=== PATIENT | female | born 1990 | race Caucasian/White ===

== ENCOUNTER 2019-08-04 20:03 | Emergency (ER) | payer MEDICAID ==
[~2019-08-04] VITALS: Ht 170.2 cm; Wt 90.7 kg
[2019-08-04] MEDS ORDERED: AZITHROMYCIN 250 MG TABLET ONE (21:58)
[2019-08-04] MEDS: AZITHROMYCIN 250 MG TABLET PO ONE (22:01)
--- NOTE | 2019-08-04 22:03 | NUR ---
Patient discharged to home in stable conditon. Written and verbal after care instructions given. Patient verbalizes understanding of instructions. AMBULATORY W/ STABLE GAIT ALL BELONGINGS W/ PT WILL DRIVE
[2019-08-04 22:05] VITALS: BP 118/89
== END 2019-08-04 22:05 | disposition home or self-care (01) ==
LOC: ER 20:09
DX: J06.9 Acute upper respiratory infection, unspecified (principal); J45.909 Unspecified asthma, uncomplicated
CPT/HCPCS: 36415; 86403; 87070; 87400; A4663; Q0144

== ENCOUNTER 2022-09-27 23:47 | Emergency (ER) | payer MEDICAID ==
[~2022-09-27] VITALS: Ht 162.6 cm; Wt 102.5 kg
[2022-09-28] MEDS ORDERED: OXYC-128 PO (00:22)
[2022-09-28] MEDS ORDERED: ONDA4TAB5 PO (00:22)
[2022-09-28] MEDS ORDERED: HYDROMORPHONE 1 MG/1 ML DISP.SYRIN IM ONE (00:30)
[2022-09-28] MEDS ORDERED: ONDANSETRON ODT 4 MG TAB.RAPDIS ONE (00:30)
[2022-09-28] MEDS ORDERED: ONDANSETRON ODT 4 MG TAB.RAPDIS SL ONE (00:30)
[2022-09-28] MEDS ORDERED: HYDROMORPHONE 1 MG/1 ML DISP.SYRIN ONE (00:33)
[2022-09-28 04:28] VITALS: BP 135/75
== END 2022-09-28 03:00 | disposition home or self-care (01) ==
LOC: ER 23:51
DX: R51.9 Headache, unspecified (principal); J45.909 Unspecified asthma, uncomplicated
CPT/HCPCS: 99283; 96372; J1170; A4663; Q0162

== ENCOUNTER 2022-10-31 21:55 | Emergency (ER) | payer MEDICAID ==
[~2022-10-31] VITALS: Ht 162.6 cm; Wt 90.7 kg
[~2022-10-31 21:55] MED LIST: ONDA4TAB5 PO; OXYC-128 PO
--- NOTE | 2022-10-31 22:26 | NUR ---
Patient placed in room 2B
[2022-11-01] MEDS ORDERED: ASPIRIN 81 MG TAB.CHEW PO ONE (00:15)
[2022-11-01] MEDS ORDERED: ASPIRIN 81 MG TAB.CHEW ONE (00:18)
[2022-11-01 00:26] LABS: HEMATOCRIT 33.8 % (31.2-41.9); MEAN CORPUSCULAR HEMOGLOBIN 27.3 uug (24.7-32.8); MEAN CORPUSCULAR VOLUME 81.7 fL (75.5-95.3); PLATELET COUNT (AUTO) 238 K/uL (179-408)
[2022-11-01 01:08] LABS: ALANINE AMINOTRANSFERASE 29 U/L (14-59); ALKALINE PHOSPHATASE 60 U/L (50-136); ASPARTATE AMINOTRANSFERASE 19 U/L (15-37); BILIRUBIN,DIRECT 0.2 mg/dL (0.0-0.2); BILIRUBIN,TOTAL 0.8 mg/dL (0.2-1.0); CARBON DIOXIDE 26 mmol/L (21-32); CHLORIDE 106 mmol/L (98-107); CREATININE 0.7 mg/dL (0.6-1.3); GLUCOSE 123 mg/dL (74-106); POTASSIUM 3.8 mmol/L (3.5-5.1); TOTAL PROTEIN, SERUM 7.3 g/dL (6.4-8.2); UREA NITROGEN, BLOOD 8 mg/dL (7-18)
[2022-11-01] MEDS ORDERED: HYDR-4209 PO (03:35)
--- NOTE | 2022-11-01 03:52 | NUR ---
Patient discharged to home in stable condition. Written and verbal after care instructions given. Patient verbalizes understanding of instructions. Stressed follow up or return to ER for worsening s/s.
[2022-11-01 03:55] VITALS: BP 110/75
== END 2022-11-01 03:52 | disposition home or self-care (01) ==
LOC: ER 21:55
DX: R07.89 Other chest pain (principal); J45.909 Unspecified asthma, uncomplicated; Z79.899 Other long term (current) drug therapy
CPT/HCPCS: 36415; 71045; 84484; 85025; 93005; A4663

== ENCOUNTER 2023-07-12 21:53 | Emergency (ER) | payer MEDICAID, OTHER ==
[~2023-07-12] VITALS: Ht 162.6 cm; Wt 92.1 kg
[~2023-07-12 21:53] MED LIST changes: +GUAI5SYR PO; +HYDR-4209 PO; +METH4TAB3 PO
[2023-07-12] MEDS ORDERED: KETOROLAC TROMETHAMINE 60 MG INJ IM ONE ×2 (22:15→22:22)
[2023-07-12] MEDS ORDERED: ONDANSETRON ODT 4 MG TAB.RAPDIS SL ONE (22:15)
[2023-07-12] MEDS ORDERED: ONDANSETRON ODT 4 MG TAB.RAPDIS ONE (22:22)
[2023-07-12 22:23] LABS: BASOPHILS # (AUTO) 0.1 K/UL (0.0-0.2); BASOPHILS % (AUTO) 1.2 % (0.0-2.0); EOSINOPHILS % (AUTO) 0.5 % (0.0-7.0); HEMATOCRIT 36.9 % (31.2-41.9); HEMOGLOBIN 12.2 g/dL (10.9-14.3); LYMPHOCYTES # (AUTO) 1.7 K/uL (0.8-4.8); LYMPHOCYTES % (AUTO) 20.3 % (20.5-51.5); MEAN CORPUSCULAR HEMOGLOBIN 26.7 uug (24.7-32.8); MEAN CORPUSCULAR HGB CONC 33 g/dL (32.3-35.6); MEAN CORPUSCULAR VOLUME 80.7 fL (75.5-95.3); MONOCYTES # (AUTO) 0.5 K/uL (0.1-1.30); MONOCYTES % (AUTO) 6.4 % (0.0-11.0); NEUTROPHILS # (AUTO) 5.9 K/uL (1.8-8.9); NEUTROPHILS % (AUTO) 71.6 % (38.5-71.5); PLATELET COUNT (AUTO) 275 K/uL (179-408); RED BLOOD CELL COUNT(AUTO) 4.58 MIL/uL (3.63-4.92); RED CELL DISTRIBUTION WIDTH 14.3 % (12.3-17.7); WHITE BLOOD COUNT (AUTO) 8.3 K/uL (3.8-11.8)
[2023-07-12 22:32] LABS: ALBUMIN 3.5 g/dL (3.4-5.0); BILIRUBIN,DIRECT 1.3 mg/dL (0.0-0.2); BILIRUBIN,TOTAL 2.8 mg/dL (0.2-1.0); CALCIUM 8.9 mg/dL (8.5-10.1); CREATININE 0.6 mg/dL (0.6-1.3); POTASSIUM 3.8 mmol/L (3.5-5.1); TOTAL PROTEIN, SERUM 7.9 g/dL (6.4-8.2)
[2023-07-12 22:40] LABS: DIFFERENTIAL COMMENT 1
[2023-07-13] MEDS ORDERED: ONDANSETRON 4 MG/2 ML VIAL ONE (00:43)
[2023-07-13] MEDS ORDERED: HYDROMORPHONE 1 MG/1 ML DISP.SYRIN ONE (00:43)
[2023-07-13] MEDS ORDERED: ONDANSETRON 4 MG/2 ML VIAL IV ONE (00:45)
[2023-07-13] MEDS ORDERED: HYDROMORPHONE 1 MG/1 ML DISP.SYRIN IV ONE (00:45)
[2023-07-13] MEDS ORDERED: REMEDY ESSENTIAL ZINC PASTE 113 GM TP PRN (02:00)
[2023-07-13] MEDS ORDERED: HYDROMORPHONE 1 MG/1 ML DISP.SYRIN IV PRN (02:00)
[2023-07-13] MEDS ORDERED: IV D5 1/2 NS 1000 ML 1,000 ML IV PRN (02:00)
[2023-07-13] MEDS ORDERED: ACETAMINOPHEN 325 MG TABLET PO PRN (02:00)
[2023-07-13] MEDS ORDERED: ONDANSETRON 4 MG/2 ML VIAL IV PRN (02:00)
[2023-07-13] MEDS ORDERED: PANTOPRAZOLE SODIUM 40 MG VIAL IV SCH (09:00)
[2023-07-13 09:10] VITALS: O2SAT 96
== END 2023-07-13 09:20 | disposition short-term general hospital (02) ==
LOC: ER 21:53
DX: K80.51 Calculus of bile duct without cholangitis or cholecystitis with obstruction (principal); R10.2 Pelvic and perineal pain; Z79.899 Other long term (current) drug therapy
CPT/HCPCS: 99285; 74176; 76705; 80076; 80048; 83690; 85025; 84702; 36415; 96372; 96374; 96375; J1885; J2405; J1170; A4606; A4663; Q0162

== ENCOUNTER → 2023-07-23 | Emergency (ER) | payer OTHER ==
[~2023-07-23] VITALS: Ht 147.3 cm; Wt 92.1 kg
[~2023-07-23] MED LIST changes: +HYDROMORPHONE 1 MG/1 ML DISP.SYRIN IV ONE; +HYDROMORPHONE 1 MG/1 ML DISP.SYRIN ONE; +IV NORMAL SALINE 1000 ML BAG IV ONE; +KETOROLAC TROMETHAMINE 15 MG INJ IVP ONE; +KETOROLAC TROMETHAMINE 15 MG INJ ONE; +ONDANSETRON 4 MG/2 ML VIAL IV ONE; +ONDANSETRON 4 MG/2 ML VIAL ONE
[2023-07-23 03:57] LABS: BASOPHILS # (AUTO) 0.1 K/UL (0.0-0.2); BASOPHILS % (AUTO) 0.5 % (0.0-2.0); EOSINOPHILS # (AUTO) 0.1 K/uL (0.0-0.7); EOSINOPHILS % (AUTO) 1.1 % (0.0-7.0); HEMATOCRIT 36.4 % (31.2-41.9); HEMOGLOBIN 12.1 g/dL (10.9-14.3); LYMPHOCYTES # (AUTO) 3.4 K/uL (0.8-4.8); LYMPHOCYTES % (AUTO) 26.6 % (20.5-51.5); MEAN CORPUSCULAR HEMOGLOBIN 26.8 uug (24.7-32.8); MEAN CORPUSCULAR HGB CONC 33 g/dL (32.3-35.6); MONOCYTES % (AUTO) 7.5 % (0.0-11.0); NEUTROPHILS # (AUTO) 8.2 K/uL (1.8-8.9); NEUTROPHILS % (AUTO) 64.3 % (38.5-71.5); PLATELET COUNT (AUTO) 308 K/uL (179-408); WHITE BLOOD COUNT (AUTO) 12.8 K/uL (3.8-11.8)
[2023-07-23 04:05] LABS: DIFFERENTIAL COMMENT 1
[2023-07-23 04:22] LABS: PREGNANCY TEST SERUM QUAN < 1 miul/L (0-6)
[2023-07-23 04:24] LABS: ALANINE AMINOTRANSFERASE 46 U/L (14-59); ALBUMIN 3.6 g/dL (3.4-5.0); ALKALINE PHOSPHATASE 83 U/L (50-136); ASPARTATE AMINOTRANSFERASE 40 U/L (15-37); BILIRUBIN,DIRECT 0.4 mg/dL (0.0-0.2); BILIRUBIN,TOTAL 1.1 mg/dL (0.2-1.0); CALCIUM 8.7 mg/dL (8.5-10.1); CARBON DIOXIDE 27 mmol/L (21-32); CHLORIDE 105 mmol/L (98-107); CREATININE 0.7 mg/dL (0.6-1.3); GLUCOSE 117 mg/dL (74-106); LIPASE 41 U/L (16-77); POTASSIUM 3.6 mmol/L (3.5-5.1); SODIUM SERUM 140 mmol/L (136-145); TOTAL PROTEIN, SERUM 8.2 g/dL (6.4-8.2); UREA NITROGEN, BLOOD 14 mg/dL (7-18)
[2023-07-23 17:19] VITALS: BP 113/72; O2SAT 97
== END | disposition left against medical advice (07) ==
LOC: ER 03:36
DX: R10.13 Epigastric pain (principal); R10.11 Right upper quadrant pain; R10.2 Pelvic and perineal pain; Z20.822 Contact with and (suspected) exposure to COVID-19; Z98.890 Other specified postprocedural states; Z79.899 Other long term (current) drug therapy
CPT/HCPCS: 99285; 96374; 76705; 96375; 96361; 87426; 80076; 80048; 83690; 85025; 84702; 36415; J1885; J2405; J1170; J7040; A4606; A4663

== ENCOUNTER 2023-10-14 17:48 | Emergency (ER) | payer MEDICAID ==
[~2023-10-14] VITALS: Ht 162.6 cm; Wt 93.4 kg
[~2023-10-14 17:48] MED LIST changes: -GUAI5SYR PO; -HYDROMORPHONE 1 MG/1 ML DISP.SYRIN IV ONE; -HYDROMORPHONE 1 MG/1 ML DISP.SYRIN ONE; -IV NORMAL SALINE 1000 ML BAG IV ONE; -KETOROLAC TROMETHAMINE 15 MG INJ IVP ONE; -KETOROLAC TROMETHAMINE 15 MG INJ ONE; -METH4TAB3 PO; -ONDA4TAB5 PO; -ONDANSETRON 4 MG/2 ML VIAL IV ONE; -ONDANSETRON 4 MG/2 ML VIAL ONE
[2023-10-14 18:27] LABS: *BILIRUBIN,URIN NEGATIVE (NEGATIVE); *BLOOD, URINE 3+ (NEGATIVE); *CLARITY,URINE SLIGHTLY CLOUDY (CLEAR); *COLOR,URINE PINK (YELLOW); *KETONES,URINE NEGATIVE (NEGATIVE); *PROTEIN,URINE 2+ (NEGATIVE); LEUKOCYTE ESTERASE ,URINE NEGATIVE (NEGATIVE); NITRITE, URINE NEGATIVE (NEGATIVE); PH,URINE 8.5 (5.0-8.0); UGLUCOSE NEGATIVE (NEGATIVE)
[2023-10-14 18:28] LABS: BASOPHILS # (AUTO) 0.1 K/UL (0.0-0.2); BASOPHILS % (AUTO) 1.2 % (0.0-2.0); EOSINOPHILS # (AUTO) 0.1 K/uL (0.0-0.7); EOSINOPHILS % (AUTO) 1.1 % (0.0-7.0); HEMATOCRIT 34.6 % (31.2-41.9); HEMOGLOBIN 11.6 g/dL (10.9-14.3); LYMPHOCYTES # (AUTO) 1.9 K/uL (0.8-4.8); LYMPHOCYTES % (AUTO) 27.7 % (20.5-51.5); MEAN CORPUSCULAR HEMOGLOBIN 26.5 uug (24.7-32.8); MEAN CORPUSCULAR HGB CONC 34 g/dL (32.3-35.6); MEAN CORPUSCULAR VOLUME 78.8 fL (75.5-95.3); MONOCYTES # (AUTO) 0.4 K/uL (0.1-1.30); MONOCYTES % (AUTO) 5.9 % (0.0-11.0); NEUTROPHILS # (AUTO) 4.5 K/uL (1.8-8.9); NEUTROPHILS % (AUTO) 64.1 % (38.5-71.5); PLATELET COUNT (AUTO) 251 K/uL (179-408); RED BLOOD CELL COUNT(AUTO) 4.39 MIL/uL (3.63-4.92); RED CELL DISTRIBUTION WIDTH 13.6 % (12.3-17.7)
[2023-10-14 18:37] LABS: DIFFERENTIAL COMMENT 1
[2023-10-14 18:40] LABS: CALCIUM 8.8 mg/dL (8.5-10.1); CREATININE 0.6 mg/dL (0.6-1.3)
[2023-10-14 18:46] LABS: ALBUMIN 3.4 g/dL (3.4-5.0); BILIRUBIN,DIRECT 0.1 mg/dL (0.0-0.2); BILIRUBIN,TOTAL 0.7 mg/dL (0.2-1.0); TOTAL PROTEIN, SERUM 7.7 g/dL (6.4-8.2); WBC,URINE 0-3 /HPF (0-3)
[2023-10-14 18:47] LABS: *URINE HCG, QUAL NEGATIVE (NEGATIVE)
[2023-10-14] MEDS ORDERED: KETOROLAC TROMETHAMINE 15 MG INJ ONE (22:55)
[2023-10-14] MEDS ORDERED: METOCLOPRAMIDE HCL 10 MG/2 ML VIAL ONE (22:55)
[2023-10-14] MEDS: METOCLOPRAMIDE HCL 10 MG/2 ML VIAL IV ONE (22:59)
[2023-10-14] MEDS: KETOROLAC TROMETHAMINE 15 MG INJ IVP ONE (23:00)
[2023-10-14 23:04] LABS: CALCIUM 8.8 mg/dL (8.5-10.1); CARBON DIOXIDE 26 mmol/L (21-32); CHLORIDE 106 mmol/L (98-107); CREATININE 0.6 mg/dL (0.6-1.3); GLUCOSE 96 mg/dL (74-106); POTASSIUM 3.7 mmol/L (3.5-5.1); SODIUM SERUM 141 mmol/L (136-145); UREA NITROGEN, BLOOD 7 mg/dL (7-18)
[2023-10-14 23:15] LABS: PREGNANCY TEST SERUM QUAN 1 miul/L (0-6)
[2023-10-14 23:18] LABS: ALANINE AMINOTRANSFERASE 35 U/L (14-59); ALBUMIN 3.6 g/dL (3.4-5.0); ALKALINE PHOSPHATASE 71 U/L (50-136); ASPARTATE AMINOTRANSFERASE 29 U/L (15-37); BILIRUBIN,DIRECT 0.1 mg/dL (0.0-0.2); BILIRUBIN,TOTAL 0.7 mg/dL (0.2-1.0); LIPASE 27 U/L (16-77); TOTAL PROTEIN, SERUM 8.2 g/dL (6.4-8.2)
[2023-10-15] MEDS ORDERED: IBUP-1957 PO (03:22)
[2023-10-15 03:37] VITALS: BP 135/87; TEMP 98.5; O2SAT 99
== END 2023-10-15 03:37 | disposition home or self-care (01) ==
LOC: ER 17:50
DX: K80.70 Calculus of gallbladder and bile duct without cholecystitis without obstruction (principal); Z98.890 Other specified postprocedural states; Z79.899 Other long term (current) drug therapy; R10.2 Pelvic and perineal pain
CPT/HCPCS: 99285; 96374; 76705; 71045; 96375; 80048 ×2; 81001; 84703; 83690 ×2; 85025; 85730; 87040 ×2; 84484; 84702; 36415; 93005; 83605; 80076 ×2; J1885; J2765; A4606; A4663

== ENCOUNTER 2024-03-02 02:39 | Emergency (ER) | payer MEDICAID ==
[~2024-03-02] VITALS: Ht 162.6 cm; Wt 97.5 kg
[~2024-03-02 02:39] MED LIST changes: +IBUP-1957 PO
--- NOTE | 2024-03-02 02:58 | NUR ---
ERMD at bedside. MSE in progress.
[2024-03-02] MEDS ORDERED: ONDANSETRON 4 MG/2 ML VIAL ONE (03:05)
[2024-03-02] MEDS ORDERED: KETOROLAC TROMETHAMINE 15 MG INJ ONE (03:05)
[2024-03-02] MEDS ORDERED: HYDROMORPHONE 1 MG/1 ML DISP.SYRIN ONE (03:06)
[2024-03-02 03:24] LABS: BASOPHILS # (AUTO) 0.1 K/UL (0.0-0.2); BASOPHILS % (AUTO) 0.7 % (0.0-2.0); EOSINOPHILS # (AUTO) 0.1 K/uL (0.0-0.7); EOSINOPHILS % (AUTO) 0.9 % (0.0-7.0); HEMATOCRIT 36.5 % (31.2-41.9); HEMOGLOBIN 12.4 g/dL (10.9-14.3); LYMPHOCYTES # (AUTO) 2.9 K/uL (0.8-4.8); MEAN CORPUSCULAR HEMOGLOBIN 27.5 uug (24.7-32.8); MEAN CORPUSCULAR HGB CONC 34 g/dL (32.3-35.6); MEAN CORPUSCULAR VOLUME 81.2 fL (75.5-95.3); MONOCYTES # (AUTO) 0.6 K/uL (0.1-1.30); MONOCYTES % (AUTO) 6.1 % (0.0-11.0); NEUTROPHILS # (AUTO) 5.8 K/uL (1.8-8.9); NEUTROPHILS % (AUTO) 61.3 % (38.5-71.5); PLATELET COUNT (AUTO) 244 K/uL (179-408); RED BLOOD CELL COUNT(AUTO) 4.49 MIL/uL (3.63-4.92); RED CELL DISTRIBUTION WIDTH 14.8 % (12.3-17.7); WHITE BLOOD COUNT (AUTO) 9.4 K/uL (3.8-11.8)
[2024-03-02 03:27] LABS: DIFFERENTIAL COMMENT 1
[2024-03-02] MEDS: HYDROMORPHONE 1 MG/1 ML DISP.SYRIN IV ONE (03:29)
[2024-03-02] MEDS: ONDANSETRON 4 MG/2 ML VIAL IV ONE (03:29)
[2024-03-02] MEDS: KETOROLAC TROMETHAMINE 15 MG INJ IVP ONE (03:30)
--- NOTE | 2024-03-02 03:31 | NUR ---
#22G established on left AC. Blood sample was obtained and handed to the rags laborer
--- NOTE | 2024-03-02 03:32 | NUR ---
Administered medication as prescribed. Assisted patient into comfortable position. safety and comfort measures in place. No S/S of distress noted.
[2024-03-02 03:38] LABS: ALBUMIN 3.8 g/dL (3.4-5.0); BILIRUBIN,DIRECT 0.1 mg/dL (0.0-0.2); BILIRUBIN,TOTAL 0.7 mg/dL (0.2-1.0); CALCIUM 8.8 mg/dL (8.5-10.1); CREATININE 0.7 mg/dL (0.6-1.3); POTASSIUM 3.6 mmol/L (3.5-5.1); TOTAL PROTEIN, SERUM 8.1 g/dL (6.4-8.2)
--- NOTE | 2024-03-02 04:35 | NUR ---
Ultrasound at bedside.
[2024-03-02] MEDS ORDERED: IBUP-1490 PO (04:48)
[2024-03-02] MEDS ORDERED: HYDR-3980 PO (04:48)
[2024-03-02] MEDS ORDERED: ONDA4TAB11 PO (04:48)
--- NOTE | 2024-03-02 06:02 | NUR ---
Patient is resting comfortably in bed with eyes closed. No S/S of distress noted.
[2024-03-02 07:23] VITALS: BP 139/7; O2SAT 97
== END 2024-03-02 07:24 | disposition home or self-care (01) ==
LOC: ER 02:48
DX: K80.20 Calculus of gallbladder without cholecystitis without obstruction (principal); R10.2 Pelvic and perineal pain; Z79.1 Long term (current) use of non-steroidal anti-inflammatories (NSAID); Z79.891 Long term (current) use of opiate analgesic; Z98.890 Other specified postprocedural states
CPT/HCPCS: 99285; 93970; 96374; 76705; 96375; 80076; 80048; 83690; 85025; 84702; 36415; J1885; J2405; J1170; A4606; A4663

== ENCOUNTER 2024-03-03 23:50 | Emergency (ER) | payer MEDICAID ==
[~2024-03-03] VITALS: Ht 152.4 cm; Wt 117.9 kg
[~2024-03-03 23:50] MED LIST changes: +HYDR-3980 PO; +IBUP-1490 PO; +ONDA4TAB11 PO
--- NOTE | 2024-03-04 00:11 | NUR ---
Dr Lovell into eval patient.
[2024-03-04] MEDS ORDERED: ONDANSETRON ODT 4 MG TAB.RAPDIS ONE (00:17)
[2024-03-04] MEDS ORDERED: HYDROCODONE/APAP 10-325 MG TABLET ONE (00:17)
[2024-03-04] MEDS: HYDROCODONE/APAP 10-325 MG TABLET PO ONE (00:19)
[2024-03-04] MEDS: ONDANSETRON ODT 4 MG TAB.RAPDIS SL ONE (00:19)
--- NOTE | 2024-03-04 00:20 | NUR ---
Administered medication as prescribed. Assisted patient into comfortable position. safety and comfort measures in place. Emotional support provided. No S/S of distress noted,
--- NOTE | 2024-03-04 01:02 | NUR ---
Patient sleeping on gurmission. Dr Lovell into re eval patient.
[2024-03-04] MEDS ORDERED: OXYCODONE/APAP 5-325 MG TABLET ONE (02:11)
[2024-03-04] MEDS: OXYCODONE/APAP 5-325 MG TABLET PO ONE (02:12)
--- NOTE | 2024-03-04 02:12 | NUR ---
Administered medication as prescribed. Assisted patient into comfortable position. safety and comfort measures in place. Emotional support provided. No S/S of distress noted.
--- NOTE | 2024-03-04 02:43 | NUR ---
Patient is resting comfortably in bed with eyes closed. No S/S of distress noted.
--- NOTE | 2024-03-04 04:05 | NUR ---
safety and comfort measures in place. No S/S of distress noted.
--- NOTE | 2024-03-04 07:35 | NUR ---
PT SAFETY DISCHARGE BY MD, INSTRUCTIONS WAS GIVEN, PT VERBALIZES UNDERSTANDING. PT INSTRUCTED TO FOLLOW UP WITH PCP AND NEURO SPECIALIST FOR FURTHER CONTROL, AND RETURN IF SYMPTOMS/SIGNS APPEARS OR GET WORSE. PT STABLE, AAOX4, NO C/O PAIN AT THIS TIME, AMBULATORY WITH STEADY GAIT, ID BAND REMOVED. PT LEAVES ER WITH ALL BELONGINGS IN HAND.
[2024-03-04 07:38] VITALS: BP 120/69; O2SAT 98
== END 2024-03-04 07:35 | disposition home or self-care (01) ==
LOC: ER 03-04 00:03
DX: R51.9 Headache, unspecified (principal); Z79.1 Long term (current) use of non-steroidal anti-inflammatories (NSAID); Z98.890 Other specified postprocedural states; Z79.891 Long term (current) use of opiate analgesic; Z79.899 Other long term (current) drug therapy
CPT/HCPCS: A4606; A4663; Q0162

== ENCOUNTER 2024-03-19 21:14 | Emergency (ER) | payer MEDICAID ==
[~2024-03-19] VITALS: Ht 162.6 cm; Wt 96.6 kg
[2024-03-19] MEDS ORDERED: PSEU120T83 PO (21:41)
[2024-03-19] MEDS ORDERED: PSEUDOEPHEDRINE HCL 30 MG TABLET ONE (21:50)
[2024-03-19] MEDS: PSEUDOEPHEDRINE HCL 30 MG TABLET PO ONE (21:53)
[2024-03-19] MEDS ORDERED: AMOX500C2 PO (22:04)
[2024-03-19] MEDS ORDERED: AMOXicillin 250 MG CAPSULE ONE (22:17)
[2024-03-19] MEDS: AMOXicillin 250 MG CAPSULE PO ONE (22:18)
[2024-03-19 22:26] VITALS: BP 120/70; TEMP 98.5; O2SAT 97
== END 2024-03-19 22:23 | disposition home or self-care (01) ==
LOC: ER 21:16
DX: J02.8 Acute pharyngitis due to other specified organisms (principal); H69.83 Other specified disorders of Eustachian tube, bilateral; Z98.890 Other specified postprocedural states; Z79.1 Long term (current) use of non-steroidal anti-inflammatories (NSAID); Z79.891 Long term (current) use of opiate analgesic; Z20.822 Contact with and (suspected) exposure to COVID-19; Z79.899 Other long term (current) drug therapy
CPT/HCPCS: 86403; A4606; A4663

== ENCOUNTER 2024-05-25 01:08 | Emergency (ER) | payer MEDICAID ==
[~2024-05-25] VITALS: Ht 162.6 cm; Wt 98.9 kg
[~2024-05-25 01:08] MED LIST changes: +AMOX500C2 PO; +PSEU120T83 PO
[2024-05-25] MEDS ORDERED: DOXY100T2 PO (01:50)
[2024-05-25] MEDS ORDERED: ACET15SO5 LEFT EAR (01:50)
[2024-05-25] MEDS ORDERED: GUAIFENESIN/CODEINE 5 ML LIQUID UDC ONE (01:56)
[2024-05-25] MEDS ORDERED: DOXYCYCLINE HYCLATE 100 MG TABLET ONE (01:56)
[2024-05-25] MEDS ORDERED: ACETAMINOPHEN 500 MG TABLET ONE (01:56)
[2024-05-25] MEDS: DOXYCYCLINE HYCLATE 100 MG TABLET PO ONE (01:58)
[2024-05-25] MEDS: GUAIFENESIN/CODEINE 5 ML LIQUID UDC PO ONE (01:58)
[2024-05-25] MEDS: ACETAMINOPHEN 500 MG TABLET PO ONE (01:58)
[2024-05-25 02:05] VITALS: BP 120/76; O2SAT 99
== END 2024-05-25 02:06 | disposition home or self-care (01) ==
LOC: ER 01:16
DX: J06.9 Acute upper respiratory infection, unspecified (principal); H61.22 Impacted cerumen, left ear; Z79.899 Other long term (current) drug therapy
CPT/HCPCS: A4606; A4663; A9150

== ENCOUNTER → 2024-07-01 | Emergency (ER) | payer MEDICAID ==
[~2024-07-01] VITALS: Ht 162.6 cm; Wt 98.0 kg
[~2024-07-01] MED LIST changes: +ACET15SO5 LEFT EAR; +ACET325C7 PO; +D-ME473S47 PO; +DOXY100T2 PO; +IBUPROFEN 800 MG TABLET ONE; +METH4TAB3 PO; +ONDANSETRON ODT 4 MG TAB.RAPDIS ONE; +P-EP-92 PO
[2024-07-01] MEDS: IBUPROFEN 800 MG TABLET PO ONE (23:14)
[2024-07-01] MEDS: ONDANSETRON ODT 4 MG TAB.RAPDIS SL ONE (23:15)
[2024-07-02 00:33] VITALS: BP 127/80; TEMP 98.3; O2SAT 97
== END | disposition home or self-care (01) ==
LOC: ER 22:28
DX: J06.9 Acute upper respiratory infection, unspecified (principal); Z79.899 Other long term (current) drug therapy; Z20.822 Contact with and (suspected) exposure to COVID-19
CPT/HCPCS: 71045; A4606; A4663; Q0162

== ENCOUNTER 2024-07-04 00:16 | Emergency (ER) | payer MEDICAID ==
[~2024-07-04] VITALS: Ht 162.6 cm; Wt 98.4 kg
[~2024-07-04 00:16] MED LIST changes: -IBUPROFEN 800 MG TABLET ONE; -ONDANSETRON ODT 4 MG TAB.RAPDIS ONE
[2024-07-04] MEDS ORDERED: AMOXicillin 250 MG CAPSULE ONE (01:05)
[2024-07-04] MEDS: AMOXicillin 250 MG CAPSULE PO ONE (01:10)
[2024-07-04 01:44] VITALS: BP 115/72; TEMP 98; O2SAT 100
== END 2024-07-04 01:44 | disposition home or self-care (01) ==
LOC: ER 00:19
DX: J02.9 Acute pharyngitis, unspecified (principal); Z79.899 Other long term (current) drug therapy
CPT/HCPCS: A4663

== ENCOUNTER 2024-08-17 23:10 | Emergency (ER) | payer MEDICAID ==
[~2024-08-17] VITALS: Ht 167.6 cm; Wt 99.8 kg
[2024-08-17] MEDS ORDERED: METOCLOPRAMIDE HCL 10 MG/2 ML VIAL ONE (23:56)
[2024-08-17] MEDS ORDERED: MORPHINE SULFATE 4 MG/1 ML DISP.SYRIN ONE (23:56)
[2024-08-18] LABS: BASOPHILS % (AUTO) 0.3 % (0.0-2.0); EOSINOPHILS % (AUTO) 0.1 % (0.0-7.0); HEMATOCRIT 37.2 % (31.2-41.9); HEMOGLOBIN 12.9 g/dL (10.9-14.3); MEAN CORPUSCULAR HEMOGLOBIN 28.8 uug (24.7-32.8); MEAN CORPUSCULAR HGB CONC 35 g/dL (32.3-35.6); MEAN CORPUSCULAR VOLUME 83.2 fL (75.5-95.3); MONOCYTES # (AUTO) 0.6 K/uL (0.1-1.30); MONOCYTES % (AUTO) 4.8 % (0.0-11.0); NEUTROPHILS # (AUTO) 9.9 K/uL (1.8-8.9); NEUTROPHILS % (AUTO) 85.8 % (38.5-71.5); PLATELET COUNT (AUTO) 253 K/uL (179-408); RED BLOOD CELL COUNT(AUTO) 4.47 MIL/uL (3.63-4.92); RED CELL DISTRIBUTION WIDTH 13.8 % (12.3-17.7); WHITE BLOOD COUNT (AUTO) 11.5 K/uL (3.8-11.8)
[2024-08-18] MEDS: METOCLOPRAMIDE HCL 10 MG/2 ML VIAL IV ONE (00:01)
[2024-08-18] MEDS: IV NORMAL SALINE 1000 ML BAG IV ONE (00:01)
[2024-08-18] MEDS: MORPHINE SULFATE 4 MG/1 ML DISP.SYRIN IV ONE (00:01)
[2024-08-18 00:03] LABS: DIFFERENTIAL COMMENT 1
[2024-08-18 00:13] LABS: CARBON DIOXIDE 29 mmol/L (21-32); CHLORIDE 103 mmol/L (98-107); CREATININE 0.8 mg/dL (0.6-1.3); GLUCOSE 174 mg/dL (74-106); POTASSIUM 3.6 mmol/L (3.5-5.1); SODIUM SERUM 139 mmol/L (136-145); UREA NITROGEN, BLOOD 11 mg/dL (7-18)
[2024-08-18 00:23] LABS: ALANINE AMINOTRANSFERASE 123 U/L (14-59); ALBUMIN 3.9 g/dL (3.4-5.0); ALKALINE PHOSPHATASE 97 U/L (50-136); ASPARTATE AMINOTRANSFERASE 197 U/L (15-37); BILIRUBIN,DIRECT 1.1 mg/dL (0.0-0.2); BILIRUBIN,TOTAL 2.1 mg/dL (0.2-1.0); LIPASE 31 U/L (16-77); TOTAL PROTEIN, SERUM 8.3 g/dL (6.4-8.2)
[2024-08-18 00:32] LABS: PREGNANCY TEST SERUM QUAN < 1 miul/L (0-6)
[2024-08-18] MEDS: IV NS 1000 ML 1,000 ML IV ONE (00:59)
[2024-08-18] MEDS ORDERED: IOHEXOL 300MG/ML 100 ML INFUS..BTL ONE (01:34)
[2024-08-18] MEDS ORDERED: IV NORMAL SALINE 250 ML IV ONE (01:34)
[2024-08-18] MEDS ORDERED: SWABABLE VALVE TRANSFER SET EA MC ONE (01:34)
[2024-08-18] MEDS ORDERED: PIPERACILLIN/TAZOBACTAM/D5W 50 ML IV ONE (02:58)
[2024-08-18] MEDS: PIPERACILLIN SODIUM/TAZOBACTAM 3.375 G in IV DEXTROSE 5% 50 ML IV ONE (03:06)
[2024-08-18 03:09] VITALS: O2SAT 95
[2024-08-18 06:52] LABS: BASOPHILS # (AUTO) 0.1 K/UL (0.0-0.2); BASOPHILS % (AUTO) 0.7 % (0.0-2.0); EOSINOPHILS % (AUTO) 0.2 % (0.0-7.0); HEMATOCRIT 32.4 % (31.2-41.9); HEMOGLOBIN 11.2 g/dL (10.9-14.3); LYMPHOCYTES # (AUTO) 1.7 K/uL (0.8-4.8); LYMPHOCYTES % (AUTO) 22.2 % (20.5-51.5); MEAN CORPUSCULAR HEMOGLOBIN 28.9 uug (24.7-32.8); MEAN CORPUSCULAR HGB CONC 35 g/dL (32.3-35.6); MEAN CORPUSCULAR VOLUME 83.6 fL (75.5-95.3); MONOCYTES # (AUTO) 0.5 K/uL (0.1-1.30); MONOCYTES % (AUTO) 6.5 % (0.0-11.0); NEUTROPHILS # (AUTO) 5.5 K/uL (1.8-8.9); NEUTROPHILS % (AUTO) 70.4 % (38.5-71.5); PLATELET COUNT (AUTO) 226 K/uL (179-408); RED BLOOD CELL COUNT(AUTO) 3.87 MIL/uL (3.63-4.92); RED CELL DISTRIBUTION WIDTH 13.8 % (12.3-17.7); WHITE BLOOD COUNT (AUTO) 7.8 K/uL (3.8-11.8)
[2024-08-18 06:56] LABS: DIFFERENTIAL COMMENT 1
[2024-08-18 07:04] LABS: ALBUMIN 3.1 g/dL (3.4-5.0); BILIRUBIN,TOTAL 1.3 mg/dL (0.2-1.0); CALCIUM 8.3 mg/dL (8.5-10.1); CREATININE 0.7 mg/dL (0.6-1.3); POTASSIUM 3.8 mmol/L (3.5-5.1)
== END 2024-08-18 10:30 | disposition short-term general hospital (02) ==
LOC: ER 23:15
DX: K80.70 Calculus of gallbladder and bile duct without cholecystitis without obstruction (principal); R10.2 Pelvic and perineal pain
CPT/HCPCS: 99285; 80076; 80048; 83690; 85025 ×2; 87040; 84702; 83605; 74177; 96365; 96361; 76705; 96375; 96366; 80053; 36415; J2765; J2270; Q9967; J2543; J7040 ×2; A4606; A4663

== ENCOUNTER 2024-08-23 22:49 | Emergency (ER) | payer MEDICAID ==
[~2024-08-23] VITALS: Ht 167.6 cm; Wt 99.8 kg
[2024-08-23 23:49] LABS: BASOPHILS # (AUTO) 0.1 K/UL (0.0-0.2); BASOPHILS % (AUTO) 0.7 % (0.0-2.0); EOSINOPHILS # (AUTO) 0.1 K/uL (0.0-0.7); EOSINOPHILS % (AUTO) 1.3 % (0.0-7.0); HEMATOCRIT 34.7 % (31.2-41.9); HEMOGLOBIN 11.9 g/dL (10.9-14.3); LYMPHOCYTES # (AUTO) 3.1 K/uL (0.8-4.8); LYMPHOCYTES % (AUTO) 29.3 % (20.5-51.5); MEAN CORPUSCULAR HEMOGLOBIN 28.5 uug (24.7-32.8); MEAN CORPUSCULAR HGB CONC 34 g/dL (32.3-35.6); MEAN CORPUSCULAR VOLUME 83.3 fL (75.5-95.3); MONOCYTES # (AUTO) 0.8 K/uL (0.1-1.30); MONOCYTES % (AUTO) 7.7 % (0.0-11.0); NEUTROPHILS # (AUTO) 6.3 K/uL (1.8-8.9); PLATELET COUNT (AUTO) 245 K/uL (179-408); RED BLOOD CELL COUNT(AUTO) 4.17 MIL/uL (3.63-4.92); RED CELL DISTRIBUTION WIDTH 13.6 % (12.3-17.7); WHITE BLOOD COUNT (AUTO) 10.4 K/uL (3.8-11.8)
[2024-08-23] MEDS ORDERED: MORPHINE SULFATE 4 MG/1 ML DISP.SYRIN ONE (23:57)
[2024-08-23] MEDS ORDERED: ONDANSETRON 4 MG/2 ML VIAL ONE (23:57)
[2024-08-23 23:59] LABS: CALCIUM 8.7 mg/dL (8.5-10.1); CREATININE 0.7 mg/dL (0.6-1.3)
[2024-08-24 00:05] LABS: ALBUMIN 3.3 g/dL (3.4-5.0); BILIRUBIN,DIRECT 0.2 mg/dL (0.0-0.2); BILIRUBIN,TOTAL 0.8 mg/dL (0.2-1.0); TOTAL PROTEIN, SERUM 7.2 g/dL (6.4-8.2)
[2024-08-24] MEDS: ONDANSETRON 4 MG/2 ML VIAL IV ONE (00:19)
[2024-08-24] MEDS: MORPHINE SULFATE 2 MG/1 ML DISP.SYRIN IV ONE (00:19)
[2024-08-24] MEDS: IV NORMAL SALINE 1000 ML BAG IV ONE (00:19)
[2024-08-24 01:44] LABS: *URINE HCG, QUAL NEGATIVE (NEGATIVE)
[2024-08-24 01:45] LABS: *BILIRUBIN,URIN NEGATIVE (NEGATIVE); *BLOOD, URINE TRACE (NEGATIVE); *CLARITY,URINE CLEAR (CLEAR); *COLOR,URINE YELLOW (YELLOW); *KETONES,URINE NEGATIVE (NEGATIVE); *PROTEIN,URINE NEGATIVE (NEGATIVE); *UROBILINOGEN,URINE 0.2 E.U./dl (NORMAL); BACTERIA,URINE NONE SEEN /HPF (NONE SEEN); LEUKOCYTE ESTERASE ,URINE NEGATIVE (NEGATIVE); NITRITE, URINE NEGATIVE (NEGATIVE); SQUAMOUS EPITHELIAL CELL,UR NONE SEEN /HPF (NONE SEEN); UGLUCOSE NEGATIVE (NEGATIVE); WBC,URINE 0-3 /HPF (0-3)
[2024-08-24] MEDS ORDERED: HYDR-4209 PO (02:40)
[2024-08-24] MEDS ORDERED: ONDA4TAB11 PO (02:40)
[2024-08-24 02:58] VITALS: BP 116/74; TEMP 98.2; O2SAT 99
== END 2024-08-24 03:00 | disposition home or self-care (01) ==
LOC: ER 22:53
DX: K80.50 Calculus of bile duct without cholangitis or cholecystitis without obstruction (principal)
CPT/HCPCS: 99285; 76705; 80076; 80048; 83690; 85025; 85730; 36415; 96374; 96375; 81001; 84703; J2405; J2270; J7040; A4606; A4663

== ENCOUNTER 2024-10-29 23:20 | Emergency (ER) | payer MEDICAID ==
[~2024-10-29] VITALS: Ht 165.1 cm; Wt 72.6 kg
[2024-10-30] MEDS ORDERED: ONDANSETRON HCL 4 MG TABLET ONE (00:14)
[2024-10-30] MEDS ORDERED: HYDROMORPHONE 1 MG/1 ML DISP.SYRIN ONE ×2 (00:14→02:46)
[2024-10-30] MEDS: ONDANSETRON HCL 4 MG TABLET PO ONE (00:18)
[2024-10-30] MEDS: HYDROMORPHONE 1 MG/1 ML DISP.SYRIN IM ONE (00:21)
[2024-10-30 00:28] LABS: BASOPHILS # (AUTO) 0.1 K/UL (0.0-0.2); BASOPHILS % (AUTO) 0.3 % (0.0-2.0); HEMATOCRIT 37.8 % (31.2-41.9); HEMOGLOBIN 12.8 g/dL (10.9-14.3); LYMPHOCYTES # (AUTO) 0.7 K/uL (0.8-4.8); LYMPHOCYTES % (AUTO) 4.2 % (20.5-51.5); MEAN CORPUSCULAR HEMOGLOBIN 28.1 uug (24.7-32.8); MEAN CORPUSCULAR HGB CONC 34 g/dL (32.3-35.6); MEAN CORPUSCULAR VOLUME 83.2 fL (75.5-95.3); MONOCYTES # (AUTO) 0.6 K/uL (0.1-1.30); MONOCYTES % (AUTO) 3.7 % (0.0-11.0); NEUTROPHILS # (AUTO) 15.3 K/uL (1.8-8.9); NEUTROPHILS % (AUTO) 91.8 % (38.5-71.5); PLATELET COUNT (AUTO) 200 K/uL (179-408); RED BLOOD CELL COUNT(AUTO) 4.54 MIL/uL (3.63-4.92); WHITE BLOOD COUNT (AUTO) 16.7 K/uL (3.8-11.8)
[2024-10-30 00:33] LABS: DIFFERENTIAL COMMENT 1
[2024-10-30 00:35] LABS: CALCIUM 9.2 mg/dL (8.5-10.1); CREATININE 1.1 mg/dL (0.6-1.3); POTASSIUM 3.5 mmol/L (3.5-5.1)
[2024-10-30 00:37] LABS: *BILIRUBIN,URIN NEGATIVE (NEGATIVE); *BLOOD, URINE NEGATIVE (NEGATIVE); *CLARITY,URINE CLEAR (CLEAR); *COLOR,URINE YELLOW (YELLOW); *KETONES,URINE 1+ (NEGATIVE); *PROTEIN,URINE TRACE (NEGATIVE); *UROBILINOGEN,URINE 0.2 E.U./dl (NORMAL); LEUKOCYTE ESTERASE ,URINE NEGATIVE (NEGATIVE); NITRITE, URINE NEGATIVE (NEGATIVE); PH,URINE 5.5 (5.0-8.0); UGLUCOSE 2+ (NEGATIVE)
[2024-10-30 00:39] LABS: *URINE HCG, QUAL NEGATIVE (NEGATIVE)
[2024-10-30 00:46] LABS: *AMPHETAMINE, URINE NEGATIVE (NEGATIVE); *BARBITURATE, URINE NEGATIVE (NEGATIVE); *BENZODIAZEPINE, URINE NEGATIVE (NEGATIVE); *CANNABINOID, URINE NEGATIVE (NEGATIVE); *COCCAINE, URINE NEGATIVE (NEGATIVE); *OPIATE, URINE NEGATIVE (NEGATIVE); *PHENCYCLIDINE SCREEN,URINE NEGATIVE (NEGATIVE); FENTANYL, URINE NEGATIVE (NEGATIVE)
[2024-10-30 00:47] LABS: ALBUMIN 3.7 g/dL (3.4-5.0); BILIRUBIN,TOTAL 1.2 mg/dL (0.2-1.0); TOTAL PROTEIN, SERUM 8.2 g/dL (6.4-8.2)
[2024-10-30 01:03] LABS: LACTIC ACID 3.9 mmol/L (0.4-2.0)
[2024-10-30 01:04] LABS: BACTERIA,URINE NONE SEEN /HPF (NONE SEEN); RBC,URINE NONE SEEN /HPF (0-3); SQUAMOUS EPITHELIAL CELL,UR FEW /HPF (NONE SEEN); WBC,URINE NONE SEEN /HPF (0-3)
[2024-10-30] MEDS ORDERED: VANCOMYCIN IV 200 ML ONE (02:46)
[2024-10-30] MEDS ORDERED: ONDANSETRON 4 MG/2 ML VIAL ONE (02:46)
[2024-10-30] MEDS: IV NS 1000 ML 1,000 ML IV ONE ×2 (03:27→03:40)
[2024-10-30] MEDS: ONDANSETRON 4 MG/2 ML VIAL IV ONE (03:27)
[2024-10-30] MEDS: HYDROMORPHONE 1 MG/1 ML DISP.SYRIN IV ONE (03:27)
[2024-10-30] MEDS: VANCOMYCIN IV 1,000 MG in IV DEXTROSE 5% 250 ML IV ONE (03:27)
[2024-10-30] MEDS ORDERED: levETIRAcetam 500 MG/5 ML VIAL IV ONE (05:08)
[2024-10-30] MEDS: levETIRAcetam IV 1,000 MG in IV DEXTROSE 5% 100 ML IV STA (05:22)
[2024-10-30] MEDS ORDERED: IOHEXOL 350 100 ML INFUS..BTL ONE (07:02)
[2024-10-30] MEDS ORDERED: SWABABLE VALVE TRANSFER SET EA MC ONE (07:02)
[2024-10-30] MEDS ORDERED: IV NORMAL SALINE 250 ML IV ONE (07:02)
[2024-10-30 09:58] VITALS: O2SAT 99
[2024-10-30] MEDS ORDERED: CEFEPIME HCL 1 G VIAL ONE (10:52)
[2024-10-30] MEDS: CEFEPIME HCL 2 G in IV DEXTROSE 5% 100 ML IV ONE (11:09)
== END 2024-10-30 13:56 | disposition short-term general hospital (02) ==
LOC: ER 23:20
DX: S06.5XAA Traumatic subdural hemorrhage with loss of consciousness status unknown, initial encounter (principal); R00.0 Tachycardia, unspecified; I10 Essential (primary) hypertension; R06.02 Shortness of breath; R11.0 Nausea; X58.XXXA Exposure to other specified factors, initial encounter; Y93.89 Activity, other specified; Y92.89 Other specified places as the place of occurrence of the external cause; Y99.8 Other external cause status
CPT/HCPCS: 99285; 70496; 96365; 96366; 96375 ×2; 71045; 96367; 80053; 82248; 84703; 83880; 85025; 85379; 85651; 87040; 84484; 36415; 70498; 93005; 83605 ×2; 80307; 96372; 81001; 70450; J0692 ×2; J1953 ×2; J2405; Q9967; J3370; J1171 ×2; J7040 ×2; A4606; A4663; Q0162

== ENCOUNTER 2024-11-15 23:53 | Emergency (ER) | payer MEDICAID ==
[~2024-11-15] VITALS: Ht 162.6 cm; Wt 98.0 kg
[2024-11-16] MEDS ORDERED: ONDANSETRON HCL 4 MG TABLET ONE (00:12)
[2024-11-16] MEDS: ONDANSETRON HCL 4 MG TABLET PO ONE (00:18)
[2024-11-16 00:27] LABS: CALCIUM 9.1 mg/dL (8.5-10.1); CREATININE 0.8 mg/dL (0.6-1.3); POTASSIUM 3.6 mmol/L (3.5-5.1)
[2024-11-16 00:30] LABS: BASOPHILS % (AUTO) 0.6 % (0.0-2.0); EOSINOPHILS % (AUTO) 0.9 % (0.0-7.0); HEMATOCRIT 34.8 % (31.2-41.9); LYMPHOCYTES % (AUTO) 30.7 % (20.5-51.5); MEAN CORPUSCULAR HEMOGLOBIN 28.6 uug (24.7-32.8); MEAN CORPUSCULAR HGB CONC 35 g/dL (32.3-35.6); MEAN CORPUSCULAR VOLUME 82.5 fL (75.5-95.3); MONOCYTES % (AUTO) 7.3 % (0.0-11.0); NEUTROPHILS % (AUTO) 60.5 % (38.5-71.5); PLATELET COUNT (AUTO) 259 K/uL (179-408); RED BLOOD CELL COUNT(AUTO) 4.21 MIL/uL (3.63-4.92); WHITE BLOOD COUNT (AUTO) 8.8 K/uL (3.8-11.8)
[2024-11-16 00:31] LABS: DIFFERENTIAL COMMENT 1; EOSINOPHILS # (AUTO) 0.1 K/uL (0.0-0.7); LYMPHOCYTES # (AUTO) 2.7 K/uL (0.8-4.8); MONOCYTES # (AUTO) 0.6 K/uL (0.1-1.30); NEUTROPHILS # (AUTO) 5.4 K/uL (1.8-8.9)
[2024-11-16 00:32] LABS: ALBUMIN 3.4 g/dL (3.4-5.0); BILIRUBIN,TOTAL 0.9 mg/dL (0.2-1.0); C-REACTIVE PROTEIN 0.61 mg/dL (0.00-0.30); MAGNESIUM 1.8 mg/dL (1.8-2.4); TOTAL PROTEIN, SERUM 7.5 g/dL (6.4-8.2)
[2024-11-16] MEDS ORDERED: ONDA4TAB5 PO (00:39)
[2024-11-16] MEDS ORDERED: ACET-3102 PO (00:39)
[2024-11-16] MEDS ORDERED: IBUP-1955 PO (00:39)
[2024-11-16 01:30] VITALS: BP 130/82; O2SAT 98
== END 2024-11-16 01:31 | disposition home or self-care (01) ==
LOC: ER 11-16 00:02
DX: R06.02 Shortness of breath (principal); R11.0 Nausea; F17.200 Nicotine dependence, unspecified, uncomplicated
CPT/HCPCS: 36415; 83690; 83735; 85025; 86140; A4606; A4663; Q0162

== ENCOUNTER 2024-11-20 00:36 | Emergency (ER) | payer MEDICAID ==
[~2024-11-20] VITALS: Ht 162.6 cm; Wt 98.0 kg
[~2024-11-20 00:36] MED LIST changes: +ACET-3102 PO; +IBUP-1955 PO; +ONDA4TAB5 PO
[2024-11-20] MEDS ORDERED: KETOROLAC TROMETHAMINE 30 MG INJ ONE (01:19)
[2024-11-20] MEDS ORDERED: METOCLOPRAMIDE HCL 10 MG/2 ML VIAL ONE (01:19)
[2024-11-20] MEDS ORDERED: diphenhydrAMINE 50 MG/1 ML VIAL ONE (01:19)
[2024-11-20] MEDS: METOCLOPRAMIDE HCL 10 MG/2 ML VIAL IV ONE (01:59)
[2024-11-20] MEDS: KETOROLAC TROMETHAMINE 30 MG INJ IVP ONE (02:00)
[2024-11-20] MEDS: diphenhydrAMINE 50 MG/1 ML VIAL IV ONE (02:01)
[2024-11-20] MEDS ORDERED: FAMOTIDINE. 20 MG/2 ML VIAL IV ONE (02:30)
[2024-11-20] MEDS ORDERED: diphenhydrAMINE 50 MG/1 ML VIAL IV ONE (02:30)
[2024-11-20 06:15] VITALS: BP 129/82; TEMP 97.7; O2SAT 98
== END 2024-11-20 06:15 | disposition home or self-care (01) ==
LOC: ER 00:41
DX: G44.209 Tension-type headache, unspecified, not intractable (principal); F17.200 Nicotine dependence, unspecified, uncomplicated; Z79.899 Other long term (current) drug therapy; Z98.890 Other specified postprocedural states
CPT/HCPCS: 99284; 96374; 96375; J1885; J1200; J2765; A4606; A4663

== ENCOUNTER 2025-04-06 12:56 | Emergency (ER) | payer MEDICAID ==
[~2025-04-06] VITALS: Ht 160 cm; Wt 94.8 kg
[2025-04-06 13:32] LABS: PLATELET COUNT (AUTO) 251 K/uL (179-408); RED BLOOD CELL COUNT(AUTO) 4.54 MIL/uL (3.63-4.92); RED CELL DISTRIBUTION WIDTH 13.6 % (12.3-17.7); WHITE BLOOD COUNT (AUTO) 10.2 K/uL (3.8-11.8)
[2025-04-06 13:55] LABS: ASPARTATE AMINOTRANSFERASE 17 U/L (15-37); CREATININE 0.5 mg/dL (0.6-1.3); SODIUM SERUM 136 mmol/L (136-145); TOTAL PROTEIN, SERUM 8.3 g/dL (6.4-8.2); UREA NITROGEN, BLOOD 10 mg/dL (7-18)
[2025-04-06] MEDS ORDERED: ONDANSETRON 4 MG/2 ML VIAL ONE (14:21)
[2025-04-06] MEDS: IV NORMAL SALINE 1000 ML BAG IV ONE (14:26)
[2025-04-06] MEDS: ONDANSETRON 4 MG/2 ML VIAL IV ONE (14:26)
[2025-04-06] MEDS ORDERED: MAG HYDROX/AL HYDROX/SIMETH 30 ML LIQUID UDC ONE (15:20)
[2025-04-06] MEDS ORDERED: LIDOCAINE VISCUS 2% 15 ML UDC ONE (15:20)
[2025-04-06] MEDS ORDERED: MORPHINE SULFATE 2 MG/1 ML DISP.SYRIN ONE (15:21)
[2025-04-06] MEDS: LIDOCAINE VISCUS 2% 15 ML UDC MM ONE (15:23)
[2025-04-06] MEDS: FAMOTIDINE. 20 MG/2 ML VIAL IV ONE (15:23)
[2025-04-06] MEDS: MAG HYDROX/AL HYDROX/SIMETH 30 ML LIQUID UDC PO ONE (15:23)
[2025-04-06 15:25] LABS: *BILIRUBIN,URIN 1+ (NEGATIVE); *BLOOD, URINE NEGATIVE (NEGATIVE); *COLOR,URINE YELLOW (YELLOW); *KETONES,URINE 3+ (NEGATIVE); *PROTEIN,URINE TRACE (NEGATIVE); *UROBILINOGEN,URINE 0.2 E.U./dl (NORMAL); LEUKOCYTE ESTERASE ,URINE 1+ (NEGATIVE); NITRITE, URINE NEGATIVE (NEGATIVE); UGLUCOSE NEGATIVE (NEGATIVE)
[2025-04-06 15:26] LABS: *CLARITY,URINE HAZY (CLEAR); *URINE HCG, QUAL POSITIVE (NEGATIVE)
[2025-04-06 15:41] LABS: SQUAMOUS EPITHELIAL CELL,UR MODERATE /HPF (NONE SEEN)
[2025-04-06] MEDS ORDERED: MORPHINE SULFATE 4 MG/1 ML DISP.SYRIN ONE (15:46)
[2025-04-06] MEDS: MORPHINE SULFATE 2 MG/1 ML DISP.SYRIN IV ONE (15:49)
[2025-04-06] MEDS ORDERED: CEFTRIAXONE /D5W 50ML IVPB **ER PYXIS IV ONE (15:50)
[2025-04-06 18:00] VITALS: BP 125/74
[2025-04-06] MEDS ORDERED: CEPH500C2 PO (18:19)
[2025-04-06] MEDS ORDERED: METO-295 PO (18:19)
[2025-04-06 21:04] VITALS: BP 120/79; O2SAT 99
== END 2025-04-06 21:05 | disposition home or self-care (01) ==
LOC: ER 12:56
DX: O26.891 Other specified pregnancy related conditions, first trimester (principal); O21.9 Vomiting of pregnancy, unspecified; F17.200 Nicotine dependence, unspecified, uncomplicated; O99.331 Smoking (tobacco) complicating pregnancy, first trimester; Z90.49 Acquired absence of other specified parts of digestive tract; Z3A.01 Less than 8 weeks gestation of pregnancy
CPT/HCPCS: 36415; 74018; 76700; 76856; 83690; 84703; 85025; 87086; A4606; A4663; J0696; J2270; J2405; J7040

== ENCOUNTER 2025-04-27 21:36 | Emergency (ER) | payer MEDICAID ==
[~2025-04-27] VITALS: Ht 170.2 cm; Wt 90.7 kg
[~2025-04-27 21:36] MED LIST changes: +CEPH500C2 PO; +METO-295 PO
[2025-04-27 22:01] VITALS: BP 114/50
[2025-04-27 22:36] LABS: PLATELET COUNT (AUTO) 231 K/uL (179-408); RED BLOOD CELL COUNT(AUTO) 4.37 MIL/uL (3.63-4.92); RED CELL DISTRIBUTION WIDTH 13.3 % (12.3-17.7); WHITE BLOOD COUNT (AUTO) 4.7 K/uL (3.8-11.8)
[2025-04-27 22:49] LABS: ASPARTATE AMINOTRANSFERASE 17.0 U/L (15-37); CREATININE 0.7 mg/dL (0.6-1.3); SODIUM SERUM 140.0 mmol/L (136-145); TOTAL PROTEIN, SERUM 7.6 g/dL (6.4-8.2); UREA NITROGEN, BLOOD 8.0 mg/dL (7-18)
[2025-04-27 23:01] LABS: PREGNANCY TEST SERUM QUAN 42.0 miul/L (0-6)
[2025-04-27 23:43] LABS: *AMPHETAMINE, URINE NEGATIVE (NEGATIVE); *BARBITURATE, URINE NEGATIVE (NEGATIVE); *BENZODIAZEPINE, URINE NEGATIVE (NEGATIVE); *CANNABINOID, URINE NEGATIVE (NEGATIVE); *COCCAINE, URINE NEGATIVE (NEGATIVE); *OPIATE, URINE NEGATIVE (NEGATIVE); *PHENCYCLIDINE SCREEN,URINE NEGATIVE (NEGATIVE); FENTANYL, URINE NEGATIVE (NEGATIVE)
[2025-04-27] MEDS ORDERED: GUAI5SYR4 PO (23:54)
[2025-04-28 00:29] VITALS: BP 119/56; O2SAT 99
== END 2025-04-28 00:15 | disposition home or self-care (01) ==
LOC: ER 21:36
DX: O03.9 Complete or unspecified spontaneous abortion without complication (principal); J40 Bronchitis, not specified as acute or chronic; R10.20 Pelvic and perineal pain unspecified side; F17.210 Nicotine dependence, cigarettes, uncomplicated; R00.2 Palpitations; Z79.899 Other long term (current) drug therapy; Z90.49 Acquired absence of other specified parts of digestive tract; Z20.822 Contact with and (suspected) exposure to COVID-19
CPT/HCPCS: 36415; 71045; 76856; 85025; 85730; A4606; A4663

== ENCOUNTER 2025-05-24 23:57 | Emergency (ER) | payer MEDICAID ==
[~2025-05-24] VITALS: Ht 162.6 cm; Wt 88.5 kg
[~2025-05-24 23:57] MED LIST changes: +ACET15SO14 LEFT EAR; -ACET15SO5 LEFT EAR; -D-ME473S47 PO; +GUAI5SYR4 PO; -IBUP-1955 PO; +IBUP-2760 PO; +ONDA-243 PO; -ONDA4TAB11 PO; +[UNRECOGNIZED DRUG - CODE] PO
[2025-05-25 00:32] VITALS: BP 152/103
[2025-05-25 01:24] LABS: PLATELET COUNT (AUTO) 242 K/uL (179-408); RED BLOOD CELL COUNT(AUTO) 4.40 MIL/uL (3.63-4.92); RED CELL DISTRIBUTION WIDTH 13.5 % (12.3-17.7); WHITE BLOOD COUNT (AUTO) 9.1 K/uL (3.8-11.8)
[2025-05-25 01:30] LABS: CREATININE 0.6 mg/dL (0.6-1.3); SODIUM SERUM 139 mmol/L (136-145); UREA NITROGEN, BLOOD 12 mg/dL (7-18)
[2025-05-25 01:36] LABS: ASPARTATE AMINOTRANSFERASE 17 U/L (15-37); TOTAL PROTEIN, SERUM 7.8 g/dL (6.4-8.2)
[2025-05-25] MEDS ORDERED: DICYCLOMINE HCL LIQ 10 MG/5 ML UDC ONE (01:46)
[2025-05-25] MEDS ORDERED: MAG HYDROX/AL HYDROX/SIMETH 30 ML LIQUID UDC ONE (01:46)
[2025-05-25] MEDS: DICYCLOMINE HCL LIQ 10 MG/5 ML UDC PO ONE (01:48)
[2025-05-25] MEDS: MAG HYDROX/AL HYDROX/SIMETH 30 ML LIQUID UDC PO ONE (01:48)
[2025-05-25 02:24] VITALS: BP 140/91; O2SAT 98
== END 2025-05-25 02:25 | disposition home or self-care (01) ==
LOC: ER 05-25 00:10
DX: R00.2 Palpitations (principal); R10.13 Epigastric pain; F17.200 Nicotine dependence, unspecified, uncomplicated; Z90.49 Acquired absence of other specified parts of digestive tract
CPT/HCPCS: 36415; 71045; 84484; 85025; A4606; A4663

== ENCOUNTER 2025-06-06 23:16 | Emergency (ER) | payer MEDICAID ==
[~2025-06-06] VITALS: Ht 162.6 cm; Wt 88.5 kg
[2025-06-06 23:18] VITALS: BP 147/88
[2025-06-06] MEDS ORDERED: OXYMETAZOLINE NASAL 0.05% 15 ML SPRAY NS ONE (23:43)
[2025-06-06] MEDS ORDERED: IBUP600T51 PO (23:48)
[2025-06-06] MEDS ORDERED: GUAI5SYR PO (23:48)
[2025-06-06] MEDS ORDERED: FLUT16SP16 BNOSTRILS (23:48)
[2025-06-06] MEDS: OXYMETAZOLINE NASAL 0.05% 15 ML SPRAY NS ONE (23:52)
[2025-06-06] MEDS ORDERED: IBUPROFEN 800 MG TABLET ONE (23:54)
[2025-06-06] MEDS: IBUPROFEN 800 MG TABLET PO ONE (23:58)
[2025-06-07 01:51] VITALS: BP 147/88; TEMP 97.8; O2SAT 98
== END 2025-06-07 01:53 | disposition home or self-care (01) ==
LOC: ER 23:24
DX: J06.9 Acute upper respiratory infection, unspecified (principal); I10 Essential (primary) hypertension; F17.200 Nicotine dependence, unspecified, uncomplicated; R03.0 Elevated blood-pressure reading, without diagnosis of hypertension; Z90.49 Acquired absence of other specified parts of digestive tract
CPT/HCPCS: A4606; A4663